=== PATIENT | female | born 1995 | race Caucasian/White ===

== ENCOUNTER 2017-09-13 05:09 | Emergency (ER) | payer OTHER ==
[~2017-09-13] VITALS: Ht 162.6 cm; Wt 61.7 kg
[2017-09-13 05:13] VITALS: Ht 162.6 cm; Wt 61.7 kg
[2017-09-13 07:15] VITALS: BP 104/68
== END 2017-09-13 07:15 | disposition home or self-care (01) ==
LOC: ED 05:09
DX: F41.0 Panic disorder [episodic paroxysmal anxiety] (principal); H61.20 Impacted cerumen, unspecified ear